=== PATIENT | female | born 1980 ===

== ENCOUNTER 2019-01-03 18:17 | Observation (INO) | payer BC, MEDICAID ==
[2019-01-03 18:24] VITALS: RESP 18
[2019-01-03 18:46] LABS: BASO # 0.1 K/uL (0.0-0.2); BASO % 0.7 % (0.0-2.0); EOS # 0.1 K/uL (0.0-0.7); EOS % 0.7 % (0.0-4.0); HEMOGLOBIN 12.4 g/dL (12.0-16.0); LYMPH # 2.4 K/uL (1.0-4.3); LYMPH % 24.3 % (20.0-40.0); MEAN CORPUSCULAR HEMOGLOBIN 26.9 pg (27.0-31.0); MEAN CORPUSCULAR HGB CONC 32.5 g/dL (33.0-37.0); MEAN PLATELET VOLUME 8.9 fl (7.2-11.7); MONO # 0.5 K/uL (0.0-0.8); MONO % 5.3 % (0.0-10.0); NEUT # 6.7 K/uL (1.8-7.0); NRBC % 0.1 % (0.0-0.0); RBC 4.59 Mil/uL (3.80-5.20); WHITE BLOOD COUNT 9.7 K/uL (4.8-10.8)
--- NOTE | 2019-01-03 18:54 | ED PDOC ---
HPI: Allergic Reaction Time Seen by Provider: 01/03/19 18:34 Chief Complaint (Nursing): Allergic Reaction Chief Complaint (Provider): adverse reaction to hydralazine History Per: Patient History/Exam Limitations: no limitations Onset/Duration Of Symptoms: Sudden Onset Current Symptoms Are (Timing): Better Possible Cause: Medication Associated Symptoms: Dizziness Home/EMS Treatment: None Severity: Moderate Additional Complaint(s): 38yo female post , gave via stat CSection at 36wk at [facility] (?decels/"cord wrapped around neck"), discharged several days later, found to gave post HTN, went back to [facility] and admitted 3 days for [facility], saw Dr Yanes after discharge started on methyldopa, BP remained elevated with mild headache, went to Dr Willow Anderson today Rx hydralazine, she took first dose at 420p today, within minutes developed presyncope, pallor, worsening headache, bilateral facial numbness, difficulty speaking, SOB with palpitations. Denies hx HTN prior to delivery, no issues during . States had echo at Dr Anderson's office today, told "everything normal". Past Medical History Reviewed: Historical Data, Nursing Documentation, Vital Signs Vital Signs: Last Vital Signs Temp 98.1 F 01/03/19 18:24 Pulse 105 H 01/03/19 18:24 Resp 18 01/03/19 18:24 BP 137/91 H 01/03/19 18:39 Pulse Ox 98 01/03/19 18:24 - Medical History PMH: HTN (post ) - Surgical History Surgical History: - Family History Family History: States: Unknown Family Hx - Living Arrangements Living Arrangements: With Family - Social History Current smoker - smoking cessation education provided: No - Allergies Allergies/Adverse Reactions: Allergies Allergy/AdvReac Type Severity Reaction Status Date / Time hydralazine AdvReac other Verified 01/03/19 18:25 Review of Systems ROS Statement: Except As Marked, All Systems Reviewed And Found Negative Constitutional: Negative for: Fever ENT: Negative for: Nose Discharge Cardiovascular: Positive for: Palpitations, Edema, Light Headedness. Negative for: Chest Pain Respiratory: Positive for: Shortness of Breath, SOB with Exertion Gastrointestinal: Negative for: Vomiting Genitourinary Female: Negative for: Dysuria, Vaginal Discharge, Vaginal Bleeding Musculoskeletal: Negative for: Neck Pain, Back Pain Skin: Negative for: Rash, Lesions, Jaundice Neurological: Positive for: Weakness, Change in Speech, Headache, Dizziness. Negative for: Confusion Physical Exam - Reviewed Nursing Documentation Reviewed: Yes Vital Signs Reviewed: Yes - Physical Exam Appears: Positive for: Well, Non-toxic, No Acute Distress Head Exam: Positive for: ATRAUMATIC, NORMAL INSPECTION, NORMOCEPHALIC Skin: Positive for: Normal Color, Warm, DRY Eye Exam: Positive for: EOMI, Normal appearance, PERRL ENT: Positive for: Normal ENT Inspection Neck: Positive for: Normal, Painless ROM Cardiovascular/Chest: Positive for: Tachycardia Respiratory: Positive for: CNT, Normal Breath Sounds Pulses-Radial (L): 3+/4+ Pulses-Radial (R): 3+/4+ Gastrointestinal/Abdominal: Positive for: Normal Exam, Soft Back: Positive for: Normal Inspection Extremity: Positive for: Normal ROM, Swelling (1+ pitting edema b/l LE) Neurological/Psych: Positive for: Awake, Alert, Normal Tone - Laboratory Results Result Diagrams: 01/03/19 18:38 - ECG ECG: Positive for: Interpreted By Me ECG Rhythm: Positive for: Normal QRS, Normal ST Segment, Sinus Rhythm Rate: 85 O2 Sat by Pulse Oximetry: 98 Pulse Ox Interpretation: Normal - Progress ED Course And Treament: Initial labs ordered, CT brain, gentle 1/2 NS EKG reviewed Disposition - Clinical Impression Clinical Impression: hypertension, Adverse drug reaction - Patient ED Disposition Is Patient to be Admitted: Transfer of Care - Disposition Disposition Time: 18:57 Condition: FAIR Forms: [email or web address] (Djiboutian) Patient Signed Over To: Renard Morales Handoff Comments: pending labs, CT brain, dispo/diagnosis
[2019-01-03] MEDS: Sodium Chloride 0.45% 1,000 ML IV SCH (19:02)
[2019-01-03 19:12] LABS: B-TYPE NATRIURETIC PEPTIDE 68.5 pg/ml (0-450)
[2019-01-03 19:34] LABS: ALB/GLOB RATIO 1.4 (1.0-2.1); ALBUMIN 4.4 g/dL (3.5-5.0); ALT/SGPT 32 U/L (9-52); AST/SGOT 38 U/L (14-36); BLOOD UREA NITROGEN 11 mg/dl (7-17); CALCIUM 10.2 mg/dL (8.4-10.2); GFR NON-AFRICAN AMERICAN > 60
--- NOTE | 2019-01-03 19:47 | ED PDOC ---
- Laboratory Results Result Diagrams: 01/03/19 18:38 01/03/19 19:10 Lab Results: Troponin I < 0.0120 ng/mL (0.00-0.120) 01/03/19 18:38 NT-Pro-B Natriuret Pep 68.5 pg/ml (0-450) 01/03/19 18:38 Total Bilirubin 0.3 mg/dl (0.2-1.3) 01/03/19 19:10 AST 38 U/L (14-36) H 01/03/19 19:10 ALT 32 U/L (9-52) 01/03/19 19:10 Alkaline Phosphatase 93 U/L (38-126) 01/03/19 19:10 Total Protein 7.7 G/DL (6.3-8.2) 01/03/19 19:10 Albumin 4.4 g/dL (3.5-5.0) 01/03/19 19:10 Globulin 3.2 gm/dL (2.2-3.9) 01/03/19 19:10 Albumin/Globulin Ratio 1.4 (1.0-2.1) 01/03/19 19:10 - ECG O2 Sat by Pulse Oximetry: 98 (RA) Pulse Ox Interpretation: Normal Medical Decision Making Medical Decision Makin:00 Patient signed out to this provider by Dr. Angulo pending labs, CT, re- evaluation and final disposition. Patient with stable vitals and in no distress upon transfer. 22:19 CT Head FINDINGS: BRAIN No acute intraparenchymal hemorrhage. No mass lesion. No CT evidence for acute territorial infarct. No midline shift or extra-axial collections. VENTRICLES: No hydrocephalus. ORBITS: The orbits are unremarkable. SINUSES AND MASTOIDS: The paranasal sinuses and mastoid air cells are clear. BONES: No fracture. SOFT TISSUES: Unremarkable. IMPRESSION: No acute intracranial abnormality. 23:35 Given near syncopal event and labile blood pressures in setting of state, patient will be placed on observation status and referred to Dr. Wright. Scribe Attestation: Documented by Marjorie Betancur, acting as a scribe Sarah Morales MD Provider Scribe Attestation: All medical record entries made by the Scribe were at my direction and personally dictated by me. I have reviewed the chart and agree that the record accurately reflects my personal performance of the history, physical exam, medical decision making, and the department course for this patient. I have also personally directed, reviewed, and agree with the discharge instructions and disposition Disposition - Clinical Impression Clinical Impression: hypertension, Adverse drug reaction, Near syncope - POA Present On Arrival: None - Disposition Disposition: Routine/Home Disposition Time: 23:16 Condition: FAIR Instructions: High Blood Pressure and , Medicines for High Blood Pressure, Adverse Drug Reactions, Adult Forms: [employer] (Burmese)
[2019-01-03 20:18] LABS: SQUAMOUS EPITHIAL < 1 /hpf (0-5); URINE BACTERIA RARE (<OCC); URINE BILIRUBIN NEGATIVE (NEGATIVE); URINE BLOOD NEGATIVE (NEGATIVE); URINE CLARITY CLEAR (Clear); URINE COLOR STRAW (YELLOW); URINE GLUCOSE (UA) NEG (NEGATIVE); URINE LEUKOCYTE ESTERASE NEG Leu/uL (Negative); URINE PROTEIN NEGATIVE (NEGATIVE); URINE UROBILINOGEN 0.2-1.0 mg/dL (0.2-1.0)
[2019-01-04] MEDS: Sodium Chloride 0.45% 1,000 ML IV SCH (02:44)
[2019-01-04 07:48] LABS: PROTHROMBIN TIME 11.7 Seconds (9.8-13.1)
[2019-01-04 07:50] LABS: PARTIAL THROMBOPLASTIN TIME 32.7 Seconds (25.6-37.1)
--- NOTE | 2019-01-04 08:25 | CARD ---
APPROVED REPORT Date of service: 01/03/2019 EKG Measurement Heart [id number] <Conclusion> Normal sinus rhythm Normal ECG
--- NOTE | 2019-01-04 08:30 | CT ---
Date of service: 01/03/2019 PROCEDURE: CT HEAD WITHOUT CONTRAST. HISTORY: headache COMPARISON: None available. TECHNIQUE: Axial computed tomography images were obtained through the head/brain without intravenous contrast. Radiation dose: Total exam DLP = 898.17 mGy-cm. This CT exam was performed using one or more of the following dose reduction techniques: Automated exposure control, adjustment of the mA and/or kV according to patient size, and/or use of iterative reconstruction technique. FINDINGS: HEMORRHAGE: No intracranial hemorrhage. BRAIN: No mass effect or edema. No atrophy or chronic microvascular ischemic changes. VENTRICLES: Unremarkable. No hydrocephalus. CALVARIUM: Unremarkable. PARANASAL SINUSES: Small retention cyst in a posterior right ethmoidal air cell. Air-fluid level with possible concomitant underlying retention cysts in the left sphenoid air cell. MASTOID AIR CELLS: Unremarkable as visualized. No inflammatory changes. OTHER FINDINGS: None. IMPRESSION: No intracranial hemorrhage or mass effect. Interval sinusitis-mild left sphenoid sinus most notably affected. This can be seen with vertex headaches. Correlate clinically. This sinusitis changes were not mentioned in the preliminary [place] [facility] report. Comments: Study marked for PA review .
[2019-01-04] MEDS ORDERED: Potassium Chloride 20 mEq ER Tab PO ONE (09:08)
--- NOTE | 2019-01-04 09:38 | CP.PCM.HP ---
History of Present Illness - History of Present Illness History of Present Illness: Pt is a 38 y/o female who recently gave via C section 3 weeks ago at [facility] complicated with Preeclampsia presented to the hospital after a presynopay episode associated with headache, facial numbness and dysarthria shortly after taking Hydralazine for the first time. She also felt short of breath and palpitations. Of note, pt was started on Methydopa but was started on Hydralazine as well given persistently elevated BP's. Otherwise, denies chest pain, RUQ/Epigastric pain, tremors, blurry vision, or recent head trauma. Pt states she is not breast feeding. PMD: Dr. Lovett Present on Admission - Present on Admission Any Indicators Present on Admission: No History of DVT/PE: No History of Uncontrolled Diabetes: No Urinary Catheter: No Decubitus Ulcer Present: No Past Patient History - Infectious Disease Hx of Infectious Diseases: None - Past Medical History & Family History Past Medical History?: Yes - Past Social History Smoking Status: Former Smoker - CARDIAC Hx Hypertension: Yes (post ) - PULMONARY Hx Respiratory Disorders: No - NEUROLOGICAL Hx Neurological Disorder: No - HEENT Hx HEENT Problems: No - RENAL Hx Chronic Kidney Disease: No - ENDOCRINE/METABOLIC Hx Endocrine Disorders: No - HEMATOLOGICAL/ONCOLOGICAL Hx Blood Disorders: No Hx AIDS: No Hx Human Immunodeficiency Virus (HIV): No - INTEGUMENTARY Hx Dermatological Problems: No - MUSCULOSKELETAL/RHEUMATOLOGICAL Hx Musculoskeletal Disorders: No Hx Falls: Yes - GASTROINTESTINAL Hx Gastrointestinal Disorders: No - GENITOURINARY/GYNECOLOGICAL Hx Genitourinary Disorders: No - PSYCHIATRIC Hx Psychophysiologic Disorder: No Hx Substance Use: No - SURGICAL HISTORY Hx Surgeries: Yes Hx Section: Yes - ANESTHESIA Hx Anesthesia: Yes Hx Anesthesia Reactions: No Meds Allergies/Adverse Reactions: Allergies Allergy/AdvReac Type Severity Reaction Status Date / Time hydralazine AdvReac other Verified 01/03/19 18:25 Physical Exam - Constitutional Appears: No Acute Distress - Head Exam Head Exam: NORMAL INSPECTION - Eye Exam Eye Exam: Normal appearance. absent: Nystagmus, Scleral icterus Pupil Exam: NORMAL ACCOMODATION, PERRL - ENT Exam ENT Exam: Mucous Membranes Moist - Neck Exam Neck exam: Positive for: Full Rom - Respiratory Exam Respiratory Exam: Clear to Auscultation Bilateral. absent: Rales, Wheezes - Cardiovascular Exam Cardiovascular Exam: REGULAR RHYTHM - GI/Abdominal Exam GI & Abdominal Exam: Normal Bowel Sounds, Soft. absent: Tenderness - Extremities Exam Extremities exam: Positive for: normal inspection. Negative for: pedal edema - Neurological Exam Neurological exam: Alert, CN II-XII Intact, Oriented x3 - Psychiatric Exam Psychiatric exam: Normal Affect - Skin Skin Exam: Normal Color Additional comments: No rash or urticaria Results - Vital Signs Recent Vital Signs: Last Vital Signs Temp 98.2 F 01/04/19 08:00 Pulse 74 01/04/19 08:00 Resp 18 01/04/19 08:00 BP 132/87 01/04/19 08:00 Pulse Ox 100 01/04/19 08:00 - Labs Result Diagrams: 01/03/19 18:38 01/03/19 19:10 Labs: Laboratory Results - last 24 hr 01/03/19 01/03/19 01/03/19 18:38 18:38 19:10 WBC 9.7 RBC 4.59 Hgb 12.4 Hct 38.0 MCV 83.0 MCH 26.9 L MCHC 32.5 L RDW 15.0 H Plt Count 322 MPV 8.9 Neut % (Auto) 69.0 Lymph % (Auto) 24.3 [place] % (Auto) 5.3 Eos % (Auto) 0.7 Baso % (Auto) 0.7 Neut # (Auto) 6.7 Lymph # (Auto) 2.4 [place] # (Auto) 0.5 Eos # (Auto) 0.1 Baso # (Auto) 0.1 PT INR APTT Fibrinogen Sodium 142 Potassium 3.0 L Chloride 103 Carbon Dioxide 27 Anion Gap 15 BUN 11 Creatinine 0.9 Est GFR ( Amer) > 60 Est GFR (Non-Af Amer) > 60 Random Glucose 100 Uric Acid Calcium 10.2 Total Bilirubin 0.3 AST 38 H ALT 32 Alkaline Phosphatase 93 Troponin I < 0.0120 NT-Pro-B Natriuret Pep 68.5 Total Protein 7.7 Albumin 4.4 Globulin 3.2 Albumin/Globulin Ratio 1.4 Urine Color Urine Clarity Urine pH Ur Specific [place] Urine Protein Urine Glucose (UA) Urine Ketones Urine Blood Urine Nitrate Urine Bilirubin Urine Urobilinogen Ur Leukocyte Esterase Urine RBC (Auto) Urine Microscopic WBC Ur Squamous Epith Cells Urine Bacteria 01/03/19 01/04/1901/04/19 19:51 07:15 07:15 WBC RBC Hgb Hct MCV MCH MCHC RDW Plt Count MPV Neut % (Auto) Lymph % (Auto) [place] % (Auto) Eos % (Auto) Baso % (Auto) Neut # (Auto) Lymph # (Auto) [place] # (Auto) Eos # (Auto) Baso # (Auto) PT 11.7 INR 1.0 APTT 32.7 Fibrinogen 341 Sodium Potassium Chloride Carbon Dioxide Anion Gap BUN Creatinine Est GFR ( Amer) Est GFR (Non-Af Amer) Random Glucose Uric Acid 3.9 Calcium Total Bilirubin AST ALT Alkaline Phosphatase Troponin I NT-Pro-B Natriuret Pep Total Protein Albumin Globulin Albumin/Globulin Ratio Urine Color Straw Urine Clarity Clear Urine pH 8.0 Ur Specific [place] 1.005 Urine Protein Negative Urine Glucose (UA) Neg Urine Ketones Negative Urine Blood Negative Urine Nitrate Negative Urine Bilirubin Negative Urine Urobilinogen 0.2-1.0 Ur Leukocyte Esterase Neg Urine RBC (Auto) 1 Urine Microscopic WBC 1 Ur Squamous Epith Cells < 1 Urine Bacteria Rare Assessment & Plan - Assessment and Plan (Free Text) Assessment: Pt is a 38 y/o female who recently gave via C section 3 weeks ago at [facility] complicated with Preeclampsia presented to the hospital after a presynopay episode associated with headache, facial numbness and dysarthria shortly after taking Hydralazine for the first time. Of note, pt was started on Methydopa but was started on Hydralazine as well given persistently elevated BP's. Othwerwise, denies chest pain, sob, RUQ/Epigastric pain, tremors, blurry vision, or recent head trauma. Pt states she is not breast feeding. Reports headache is resolved. BP elevated on admission, now within normal limits without any intervention. #Headache #Medication induced reaction- allergic? #Preeclampsia w/ elevated BP - All symptoms resolved this morning - BP now stable - Will monitor BP and consider starting alternative antihypertensive - Pt advised to avoid Hydralazine as this may have been an allergic reaction Discussed with Dr. Kyle Jasso PGY2
[2019-01-04 11:48] VITALS: BP 124/77; PULSE 86; TEMP 98.4; O2SAT 98
[2019-01-04 12:37] LABS: BLOOD UREA NITROGEN 8 mg/dl (7-17); CALCIUM 8.9 mg/dL (8.4-10.2); GFR NON-AFRICAN AMERICAN > 60
--- NOTE | 2019-01-04 13:37 | CP.PCM.PCO ---
Assessment & Plan - Assessment and Plan (Free Text) Assessment: pt. seen and examined; feels well this morning, denies dizziness, bonds BP better controlled pt. cleared for dc to home today
== END 2019-01-04 16:05 | disposition home or self-care (01) ==
LOC: H.ER 18:17 → H.ERHOLD 23:35 → H.TEL 01-04 00:51
PROVIDERS: ADMIT Internal Medicine; ATTEND Internal Medicine
DX: O16.5 Unspecified maternal hypertension, complicating the puerperium (principal); Z98.891 History of uterine scar from previous surgery; Z87.891 Personal history of nicotine dependence
CPT/HCPCS: 36415; 70450; 80048; 80053; 81003; 83880; 84484; 84550; 85025; 85384; 85610; 85730; 93005; 99285; G0378; J2765; J7030